=== PATIENT | female | born 1980 | race Caucasian/White ===

== ENCOUNTER 2018-10-11 13:15 | Outpatient (REF) | payer BC, SELFPAY ==
--- NOTE | 2018-10-11 12:15 | PAPFT_PTH ---
PAT[facility]: [id number] AGE/SX: 38/F ROOM: RE10/11/[address]: Eve Barboza : 1980 BED: DIS: 10/11/2018 SPEC #: [id number] RECD: 10/14/18 13:08 STATUS: TIFF REEnrique #: [id number] DANIELA: 10/11/18 12:[address]: Eve Barboza DEPT: [facility] Cytology RECD BY: Annemarie Barnes Tissues: 1 - CX/ENDOCX FOR PAP SMEARS Procedures: PAP THIN PREP/UVM Screening HPV DNA PROBE Comments: [id number]
[2018-10-11 21:22] LABS: Anion Gap 12.4 mmol/L (3-11); BUN 13 mg/dL (7-18); CO2 26.6 mmol/L (21.0-32.0); CREATININE 0.86 mg/dL (0.55-1.02); Calcium 9.7 mg/dL (8.5-10.1); Chloride 103 mmol/L (98-107); Cholesterol 223 mg/dL (50-200); Glucose 73 mg/dL (70-100); HDL Cholesterol 61 mg/dL (40-60); LDL CHOLESTEROL 141 mg/dL (<100); Potassium 3.7 mmol/L (3.5-5.1); Sodium 142 mmol/L (136-145); TSH (W/Ref FT4) 0.89 uIU/mL (0.358-3.74); Triglyceride 88 mg/dL (30-150)
[2018-10-11 21:37] LABS: Magnesium 2.2 mg/dL (1.8-2.4)
== END 2018-10-11 13:35 ==
LOC: NCHCN 13:15
PROVIDERS: PCP Nurse Practitioner Family; Visit Provider Nurse Practitioner Family
DX: Z00.00 Encounter for general adult medical examination without abnormal findings (principal); R07.9 Chest pain, unspecified; F45.8 Other somatoform disorders; N39.3 Stress incontinence (female) (male); R10.13 Epigastric pain; F34.1 Dysthymic disorder; E66.9 Obesity, unspecified; Z12.4 Encounter for screening for malignant neoplasm of cervix; Z11.51 Encounter for screening for human papillomavirus (HPV); Z01.419 Encounter for gynecological examination (general) (routine) without abnormal findings
CPT/HCPCS: 80048; 80061; 83721; 88142; 83735; 84443; 87624

== ENCOUNTER 2020-04-02 16:09 | Outpatient (REF) | payer MEDICAID, SELFPAY ==
[2020-04-05 15:16] LABS: SARS-CoV-2 RNA Undetected (Undetected); SARS-CoV-2 Specimen Source Nasopharynx
== END 2020-04-02 16:29 ==
LOC: NCHCN 16:09
PROVIDERS: PCP Nurse Practitioner Family; Visit Provider Family Medicine
DX: Z11.59 Encounter for screening for other viral diseases (principal)
CPT/HCPCS: U0003

== ENCOUNTER 2020-09-22 12:46 | Emergency (ER) | payer OTHER, SELFPAY ==
[2020-09-22] VITALS (15 sets, daily range): BP systolic 125–142; BP diastolic 76–92; PULSE 79–93; RESP 12–20; TEMP 36.8–37.2; O2SAT 97–100
--- NOTE | 2020-09-22 12:45 | RT.EKG_ITS ---
APPROVED REPORT Exam: Resting ECG Patient Location: E HR:91 bpm ECG Measurements Heart Rate 91 AXIS IL 145 P 66 QRSd 96 QRS 63 QT 367 T 26 QTc 453 Conclusion Sinus rhythm...normal P axis, V-rate 60- 99. S1Q3T3. No STEMI. I have reviewed and interpreted ECG and agree with software generated interpretation.
--- NOTE | 2020-09-22 12:57 | W.ED.GENAD ---
Discharge Plan Disposition Patient Disposition: HOME Condition: Stable Discharge Details Clinical Impression: Atypical chest pain, Chest wall pain Primary Care Provider: Eve Barboza ED Provider: Halle Frank Home Meds and New Rx's Prescriptions: New methocarbamol 500 mg tablet 500 mg PO Q6H PRN (Reason: muscle spasm) Qty: 14 RF: 0 naproxen [Naprosyn] 500 mg tablet 500 mg PO BID PRN (Reason: pain) Qty: 14 RF: 0 lidocaine [Lidoderm] 5 % adhesive patch,medicated 1 patch TP DAILY PRN (Reason: pain) Qty: 15 RF: 0 Continued medroxyprogesterone [Depo-Provera] 150 mg/mL Suspension IM RF: 0 Discharge Instructions Instructions: Chest Wall Pain (ED) Additional Instructions: Alternate ice and heat to the affected area(s) several times daily for 20 minutes at a time. Alternate tylenol and motrin as needed and directed for pain. Take the methocarbamol for pain not relieved with Tylenol or Motrin. Use Lidoderm patch as needed and directed for pain. Call your primary care doctor's office tomorrow to schedule a follow-up appointment for reevaluation and for referral for outpatient stress test if your symptoms do not improve or worsen. Return immediately to the emergency department if you develop any worsening or new concerning symptoms. Discharge Data Discharge Date/Time-TO BE ENTERED AT DEPARTURE: 09/22/20 16:57 Discharge Physician: Halle Frank Medical Decision Making 40-year-old female with a history of peptic ulcer disease and tobacco smoker presents from the urgent care for substernal chest pain with radiation to her back and right arm with intermittent shortness of breath for CT chest to rule out PE. Denies any pleuritic chest pain. EKG notes a rate of 91, sinus. S1 Q3 T3. No acute ST elevation or depression. Her substernal chest is tender. Her lungs are clear. Differential diagnosis includes PE, musculoskeletal, anxiety. History and presentation not consistent with dissection. Screening labs and CT chest obtained and unremarkable. A repeat troponin obtained and negative. Repeat EKG unchanged. Patient reassessed and she is requesting to go home. She was still complaining of pain but states that she now has right chest pain which radiates to her back. Her right chest and right back is tender but she appears nontoxic and has normal oxygen saturation. Suspect most likely musculoskeletal. Patient was given a Valium and a Lidoderm patch placed. We will send home with methocarbamol and naproxen. Advised to follow-up with primary care doctor for evaluation and for referral for stress test if symptoms do not improve or worsen. Insert return precautions Medical Records Medical records reviewed: Yes I reviewed the patient's medical records. Imaging Data Radiologic Study: Radiologist's impression: CT CHEST PE CTA CLINICAL HISTORY: chest pain, sob, r/o PE, pneumonia. TECHNIQUE: Imaging Protocol: Axial CT angiography was performed with multi-slice acquisition and multi-planar and/or 3D reconstructions. CONTRAST MATERIAL: Intravenous: Omnipaque 350 Contrast volume:100 mL COMPARISON: No exams were available for comparison FINDINGS: Tracheobronchial tree: Patent where visualized. Pulmonary parenchyma: No consolidation or dominant measurable mass. No architectural distortion. Poor inspiration. Pulmonary Arteries: No evidence of filling defect to suggest pulmonary emboli. Mediastinum and Radha: No dominant adenopathy or fluid collection. Visualized thyroid gland: Unremarkable. Pleura: No effusion or pneumothorax. Heart: The heart is not dilated. No coronary artery calcifications are seen. No pericardial effusion. Aorta: Thoracic aorta non-dilated. No evidence of dissection. Upper abdomen: Unremarkable. Soft tissues: Unremarkable. Bones: Degenerative changes. IMPRESSION: 1. No evidence of pulmonary embolism, thoracic aortic dissection or aneurysm. 2. Findings were discussed with the emergency department on the date of the examination. Lab Data Lab results reviewed: Yes I reviewed the patient's lab results. Labs: Laboratory Tests Range/Units 09/22/20 09/22/20 09/22/20 12:56 12:56 12:56 WBC (4.4-10.8) 10^3/uL 12.08 H RBC (3.93-5.22) 10^6/uL 4.93 Hgb (11.2-15.7) g/dL 15.7 Hct (36.0-46.0) % 46.7 H MCV (80-95) fL 94.7 MCH (27.0-33.0) pg 31.8 MCHC (32.0-36.0) % 33.6 RDW (11.7-14.6) % 12.5 Plt Count (130-400) 10^3/uL 275 MPV (8.0-11.0) fL 10.6 Immature Gran % 0.4 Neutrophils % 63.8 Lymphocytes % 28.2 Monocytes % 6.3 Eosinophils % 0.9 Basophils % 0.4 Nucleated RBC % % 0 Absolute Neutrophils (1.2-6.7) 10^3/uL 7.71 H Absolute Lymphocytes (1.2-3.4) 10^3/uL 3.41 H Absolute Monocytes (0.1-0.8) 10^3/uL 0.76 Absolute Eosinophils (0.0-0.7) 10^3/uL 0.11 Absolute Basophils (0.0-0.2) 10^3/uL 0.05 PT (9.3-11.0) sec 10.0 INR (0.9-1.1) 1.0 APTT (21.0-27.5) sec 26.1 Sodium (136-145) mmol/L 139 Potassium (3.5-5.1) mmol/L 3.3 L Chloride (98-107) mmol/L 104 Carbon Dioxide (21.0-32.0) mmol/L 28.2 Anion Gap (3-11) mmol/L 6.8 BUN (7-18) mg/dL 12 Creatinine (0.55-1.02) mg/dL 0.90 Estimated GFR/1.73 m2 (mL/min/1.73m2) >= 60.00 Glucose (74-106) mg/dL 86 Calcium (8.5-10.1) mg/dL 8.4 L Magnesium (1.8-2.4) mg/dL 2.1 Total Bilirubin (0.2-1.0) mg/dL 0.3 AST (15-37) U/L 13 L ALT (14-59) U/L 32 Alkaline Phosphatase (46-116) U/L 67 Troponin I (<0.06) ng/mL < 0.05 Total Protein (6.4-8.2) g/dL 7.2 Albumin (3.4-5.0) g/dL 4.0 Range/Units 09/22/20 16:10 WBC (4.4-10.8) 10^3/uL RBC (3.93-5.22) 10^6/uL Hgb (11.2-15.7) g/dL Hct (36.0-46.0) % MCV (80-95) fL MCH (27.0-33.0) pg MCHC (32.0-36.0) % RDW (11.7-14.6) % Plt Count (130-400) 10^3/uL MPV (8.0-11.0) fL Immature Gran % Neutrophils % Lymphocytes % Monocytes % Eosinophils % Basophils % Nucleated RBC % % Absolute Neutrophils (1.2-6.7) 10^3/uL Absolute Lymphocytes (1.2-3.4) 10^3/uL Absolute Monocytes (0.1-0.8) 10^3/uL Absolute Eosinophils (0.0-0.7) 10^3/uL Absolute Basophils (0.0-0.2) 10^3/uL PT (9.3-11.0) sec INR (0.9-1.1) APTT (21.0-27.5) sec Sodium (136-145) mmol/L Potassium (3.5-5.1) mmol/L Chloride (98-107) mmol/L Carbon Dioxide (21.0-32.0) mmol/L Anion Gap (3-11) mmol/L BUN (7-18) mg/dL Creatinine (0.55-1.02) mg/dL Estimated GFR/1.73 m2 (mL/min/1.73m2) Glucose (74-106) mg/dL Calcium (8.5-10.1) mg/dL Magnesium (1.8-2.4) mg/dL Total Bilirubin (0.2-1.0) mg/dL AST (15-37) U/L ALT (14-59) U/L Alkaline Phosphatase (46-116) U/L Troponin I (<0.06) ng/mL < 0.05 Total Protein (6.4-8.2) g/dL Albumin (3.4-5.0) g/dL ECG Data Attestation: I personally reviewed and interpreted this ECG (s) as follows: Interpretation: Rate of 91, sinus, S1Q3T3. No acute ST elevation or depression. FL 125. QRS 96. QTc 453. HPI General Mode of arrival: ambulatory. Date/Time Provider Initiated Documentation: 09/22/20 12:54. Limitations to Documentation: no limitations. Information obtained by: patient. HPI Narrative: Patient is a 40-year-old female with a history of peptic ulcer disease presents for sharp chest pain with radiation to her back and right arm with intermittent shortness of breath since yesterday. Patient states the pain started while walking around at work yesterday. Patient works as a home health nurse. She denies any history of excessive exertion or injury. Patient states the pain was at its worse on driving in her car this morning at 8/10. She states the pain is currently 4/10. She also admits to nausea but denies any vomiting, fever, cough, dizziness, recent travel, recent surgery, leg pain or swelling. Related Data Home Medications Medication Instructions Recorded Confirmed lidocaine [Lidoderm] 1 patch TP DAILY PRN #15 each 09/22/20 medroxyprogesterone [Depo-Provera] mg IM 09/22/20 methocarbamol 500 mg PO Q6H PRN #14 tab 09/22/20 naproxen [Naprosyn] 500 mg PO BID PRN #14 tab 09/22/20 Previous Rx's Medication Instructions Recorded lidocaine [Lidoderm] 1 patch TP DAILY PRN #15 each 09/22/20 methocarbamol 500 mg PO Q6H PRN #14 tab 09/22/20 naproxen [Naprosyn] 500 mg PO BID PRN #14 tab 09/22/20 Allergies Allergy/AdvReac Type Severity Reaction Status Date / Time No Known Allergies Allergy Unverified 09/22/20 12:53 General Stated Complaint: Chest Pain CELIA: 2 Review of Systems All systems reviewed & are unremarkable except as noted in HPI and below Constitutional Constitutional: Reports as per HPI, Denies chills and Denies fever(s) Eyes Eyes: Denies blurry vision ENT Ears, Nose, Mouth, and Throat: Denies dizziness, Denies sore throat and Denies throat swelling Cardiovascular Cardiovascular: Reports chest pain and Denies dyspnea Respiratory Respiratory: Denies cough and Denies dyspnea Gastrointestinal Gastrointestinal: Denies abdominal pain, Denies diarrhea and Denies vomiting Genitourinary Genitourinary: Denies hematuria and Denies dysuria Musculoskeletal Musculoskeletal: Denies back pain and Denies numbness Integumentary/Breasts Skin/Breast: Denies lesions and Denies rash Neurologic Neurologic: Denies dizziness, Denies localized weakness and Denies numbness Allergic/Immunologic Allergic/Immunologic: Denies throat swelling [facility] Medical History (Updated 09/22/20 @ 16:43 by Halle Frank DO) Peptic ulcer disease Surgical History (Updated 09/22/20 @ 13:17 by Halle Frank DO) History of bunionectomy History of tonsillectomy Social History Smoking/Tobacco Use Status: Current every day Tobacco Type: cigarettes Smoking risk assessment performed?: Yes Alcohol Intake: current Drug use: Never Substance use type: does not use Do you feel safe at home: Yes Do you feel safe in your relationship?: Yes Exam Const General: cooperative, healthy appearing, no acute distress and anxious Orientation: alert, awake and oriented x3 HENMT Head: normal to inspection Face and sinus: normal facial exam Eyes General: appearance normal, both eyes and all related structures Pupils: PERRL EOM: EOM intact bilaterally Neck Neck: normal visual inspection and No submandibular swelling Lymphatic: no lymphadenopathy noted Chest Chest: normal inspection of the chest Chest/axillae images: 1. Tenderness to palpation of substernal chest. No crepitus, ecchymoses, erythema, edema. Resp Effort & Inspection: normal respiratory effort and able to speak in complete sentences Auscultation: clear to auscultation bilaterally Cardio Rate: regular rate Rhythm: regular rhythm GI Inspection: normal to inspection Palpation: soft, not firm, not rigid and nontender Auscultation: normal bowel sounds Back/Spine/Pelvis Thoracic/Lumbar Spine: thoracic and lumbar spine normal to inspection Skin General skin exam: no rashes or lesions noted Neuro General: patient alert, patient awake and patient oriented x3 Cognition: normal cognition Speech: speech normal Motor: muscle tone normal throughout Sensory Exam: no sensory deficits noted Extrem General: normal to inspection, full ROM, capillary refill normal, no calf tenderness bilaterally and no edema Psych Appearance: grossly normal Mental Status: mental status grossly normal Speech and Movement: speech and movement normal Affect: normal affect Course Vital Signs Vital signs: Vital Signs Temperature 99.0 F 09/22/20 12:51 Pulse 90 09/22/20 12:51 Respiratory Rate 20 09/22/20 12:51 Blood Pressure 132/92 H 09/22/20 12:51 Pulse Oximetry 99 09/22/20 12:51 Temperature 99.0 F 09/22/20 12:51 Temperature Source Skin 09/22/20 12:51 Pulse 90 09/22/20 12:51 Respiratory Rate 20 09/22/20 12:51 Respiratory Effort Short of Breath 09/22/20 12:55 Blood Pressure 132/92 H 09/22/20 12:51 Blood Pressure Position Supine 09/22/20 12:51 Pulse Oximetry 99 09/22/20 12:51 Oxygen Delivery Method Room Air 09/22/20 12:51 Oxygen Flow Rate 0 09/22/20 12:51 Pain Level 8 09/22/20 12:51
[2020-09-22 13:10] LABS: Abs Immature Grans 0.05 10^3/uL (0.0-0.06); Absolute Basophil Count 0.05 10^3/uL (0.0-0.2); Absolute Eosinophil Count 0.11 10^3/uL (0.0-0.7); Absolute Lymphocyte Count 3.41 10^3/uL (1.2-3.4); Absolute Monocyte Count 0.76 10^3/uL (0.1-0.8); Basophils % 0.4; Eosinophils % 0.9; HCT 46.7 % (36.0-46.0); HGB 15.7 g/dL (11.2-15.7); Immature Grans % 0.4; Lymphocytes % 28.2; MCH 31.8 pg (27.0-33.0); MCHC 33.6 % (32.0-36.0); MCV 94.7 fL (80-95); MPV 10.6 fL (8.0-11.0); Monocytes % 6.3; Neutrophils % 63.8; Nucleated RBC 0 %; Platelet Count 275 10^3/uL (130-400); RBC 4.93 10^6/uL (3.93-5.22); RDW 12.5 % (11.7-14.6); RDW-SD 44.4 fL; WBC 12.08 10^3/uL (4.4-10.8)
[2020-09-22] MEDS: Ondansetron 4 MG/2 ML VIAL IVP (13:11)
--- NOTE | 2020-09-22 13:15 | DI.CT_ITS ---
EXAM: CT CHEST PE CTA CLINICAL HISTORY: chest pain, sob, r/o PE, pneumonia. TECHNIQUE: Imaging Protocol: Axial CT angiography was performed with multi-slice acquisition and mu lti-planar and/or 3D reconstructions. CONTRAST MATERIAL: Intravenous: Omnipaque 350 Contrast volume:100 mL COMPARISON: No exams were available for comparison FINDINGS: Tracheobronchial tree: Patent where visualized. Pulmonary parenchyma: No consolidation or dominant measurable mass. No architectural distortion. Poor inspiration. Pulmonary Arteries: No evidence of filling defect to suggest pulmonary emboli. Mediastinum and Radha: No dominant adenopathy or fluid collection. Visualized thyroid gland: Unremarkable. Pleura: No effusion or pneumothorax. Heart: The heart is not dilated. No coronary artery calcifications are seen. No pericardial effusion. Aorta: Thoracic aorta non-dilated. No evidence of dissection. Upper abdomen: Unremarkable. Soft tissues: Unremarkable. Bones: Degenerative changes. IMPRESSION: 1. No evidence of pulmonary embolism, thoracic aortic dissection or aneurysm. 2. Findings were discussed with the emergency department on the date of the examination. RADIATION DOSE DELIVERED: 505.82mGy.cm Total DLP DATA REPOSITORY: All CT scans at this facility are submitted to the National Radiology Data Registry (NRDR) Dose Index Registry (DIR) with the [employer] ([employer]). RADIATION OPTIMIZATION: All CT scans at this facility use at least one of these dose optimization te chniques: automated exposure control; mA and/or kV adjustment per patient size (includes targeted exa ms where dose is matched to clinical indication); or iterative reconstruction.
[2020-09-22 13:16] LABS: Absolute Neutrophil Count 7.71 10^3/uL (1.2-6.7)
[2020-09-22 13:26] LABS: ALT 32 U/L (14-59); AST 13 U/L (15-37); Alkaline Phosphatase 67 U/L (46-116); Anion Gap 6.8 mmol/L (3-11); BUN 12 mg/dL (7-18); Bilirubin, Total 0.3 mg/dL (0.2-1.0); CO2 28.2 mmol/L (21.0-32.0); Calcium 8.4 mg/dL (8.5-10.1); Chloride 104 mmol/L (98-107); Glucose 86 mg/dL (74-106); Magnesium 2.1 mg/dL (1.8-2.4); Potassium 3.3 mmol/L (3.5-5.1); Sodium 139 mmol/L (136-145); Total Protein 7.2 g/dL (6.4-8.2)
[2020-09-22 13:29] LABS: Troponin I < 0.05 ng/mL (<0.06)
[2020-09-22 13:37] LABS: PTT Activated 26.1 sec (21.0-27.5)
[2020-09-22] MEDS: Normal Saline - Diluent 50 ML VIAL IV (13:48)
[2020-09-22] MEDS: Omnipaque 350 MG/ML 100 ML BTL IJ (13:48)
[2020-09-22] MEDS: Normal Saline Flush 10 ML SYR IVP (13:49)
[2020-09-22] MEDS: Normal Saline 1,000 ML 1000 ML IV (13:54)
[2020-09-22] MEDS: Ketorolac 30 MG/ML VIAL IVP (13:54)
--- NOTE | 2020-09-22 15:15 | RT.EKG_ITS ---
APPROVED REPORT Exam: Resting ECG Patient Location: E HR:81 bpm ECG Measurements Heart Rate 81 AXIS VA 153 P 79 QRSd 95 QRS 76 QT 377 T 30 QTc 437 Conclusion Sinus rhythm...normal P axis, V-rate 60- 99 I have reviewed and interpreted ECG and agree with software generated interpretation.
[2020-09-22 16:36] LABS: Troponin I < 0.05 ng/mL (<0.06)
[2020-09-22] MEDS: diazePAM 5 MG TAB PO (16:52)
[2020-09-22] MEDS: Lidocaine 5% Patch 1 PATCH TP (16:52)
== END 2020-09-22 16:57 | disposition home or self-care (01) ==
PROVIDERS: Emergency Provider Physician Assistant; PCP Nurse Practitioner Family
DX: R07.89 Other chest pain (principal); R07.81 Pleurodynia; R06.02 Shortness of breath
CPT/HCPCS: 36415; 71275; 80053; 81025; 93005; 96361; 96374; 96375; 99285; 83735; 84484; 85025; 85610; 85730; 93010; J1885; J2405; J3490

== ENCOUNTER 2020-10-13 13:49 | Outpatient (CLI) | payer OTHER, MEDICAID, SELFPAY ==
[2020-10-13 15:17] LABS: D-Dimer 624 ng/mlFEU (<500)
== END 2020-10-13 13:50 | disposition home or self-care (01) ==
LOC: LBO 13:58
PROVIDERS: PCP Nurse Practitioner Family; Visit Provider Nurse Practitioner Family
DX: R06.02 Shortness of breath (principal)
CPT/HCPCS: 36415; 85379

== ENCOUNTER 2020-11-05 04:16 | Outpatient (CLI) | payer OTHER, MEDICAID, SELFPAY ==
--- NOTE | 2020-11-05 | DI.CT_ITS ---
EXAM: CT CHEST WO CLINICAL HISTORY: SOB,R06.02,CHEST TIGHTNESS,R07.89,? PARENCHYAL PROCESS,PULMONARY DISEASE,. TECHNIQUE: Imaging protocol: Axial computed tomography images were obtained and coronal and sagittal reformatted images were created and reviewed. COMPARISON: CT CT CHEST PE CTA from 09/22/2020 FINDINGS: Tracheobronchial tree: Patent where visualized. Pulmonary parenchyma: No consolidation or dominant measurable mass. No architectural distortion. Ther e are few pleural based pulmonary nodules likely reflecting scarring or lymph nodes. No follow-up is recommended. There is a calcified granuloma in the right lower lobe. Mediastinum and Radha: No dominant adenopathy or fluid collection. Pleura: No effusion or pneumothorax. Heart: The heart is not dilated. No coronary artery calcifications are seen. No pericardial effusion. Aorta: Thoracic aorta non-dilated. Upper abdomen: Unremarkable. Lymph nodes: Within normal limits. Soft tissues: Unremarkable. Bones:Normal. IMPRESSION: No acute pulmonary process. RADIATION DOSE DELIVERED: 624.71mGy.cm Total DLP 624.71mGy.cm Total DLP DATA REPOSITORY: All CT scans at this facility are submitted to the National Radiology Data Registry (NRDR) Dose Index Registry (DIR) with the [employer] (ACR). RADIATION OPTIMIZATION: All CT scans at this facility use at least one of these dose optimization te chniques: automated exposure control; mA and/or kV adjustment per patient size (includes targeted exa ms where dose is matched to clinical indication); or iterative reconstruction.
== END 2020-11-05 04:36 ==
PROVIDERS: PCP Nurse Practitioner Family
DX: R06.02 Shortness of breath (principal); R07.89 Other chest pain
CPT/HCPCS: 71250

== ENCOUNTER 2020-12-24 02:14 | Outpatient (CLI) | payer OTHER, MEDICAID, SELFPAY ==
--- NOTE | 2020-12-24 | DI.RAD_ITS ---
EXAM: XR CHEST 2V PA LATERAL CLINICAL HISTORY: SOB,R06.02 TECHNIQUE: 2D digital imaging was performed. COMPARISON: No exams were available for comparison FINDINGS: MEDIASTINUM: Normal. HEART: Normal. PULMONARY VASCULATURE: Normal. LUNGS: Clear. PLEURAL SPACE: No pleural effusion or pneumothorax. BONE:Normal. IMPRESSION: No acute pulmonary findings. DATA REPOSITORY: RADIATION DOSE DELIVERED:
[2020-12-24 09:45] LABS: Abs Immature Grans 0.06 10^3/uL (0.0-0.06); Absolute Basophil Count 0.07 10^3/uL (0.0-0.2); Absolute Eosinophil Count 0.17 10^3/uL (0.0-0.7); Absolute Monocyte Count 0.71 10^3/uL (0.1-0.8); Basophils % 0.6; Eosinophils % 1.4; HCT 47.7 % (36.0-46.0); HGB 16.1 g/dL (11.2-15.7); Immature Grans % 0.5; Lymphocytes % 23.9; MCH 32.5 pg (27.0-33.0); MCHC 33.8 % (32.0-36.0); MCV 96.4 fL (80-95); MPV 10.4 fL (8.0-11.0); Monocytes % 5.8; Neutrophils % 67.8; Nucleated RBC 0 %; Platelet Count 297 10^3/uL (130-400); RBC 4.95 10^6/uL (3.93-5.22); RDW 12.4 % (11.7-14.6); RDW-SD 44.5 fL; WBC 12.32 10^3/uL (4.4-10.8)
[2020-12-24 09:54] LABS: Absolute Lymphocyte Count 2.94 10^3/uL (1.2-3.4); Absolute Neutrophil Count 8.35 10^3/uL (1.2-6.7)
[2020-12-24 11:13] LABS: ALT 44 U/L (14-59); AST 21 U/L (15-37); Albumin 4.6 g/dL (3.4-5.0); Alkaline Phosphatase 68 U/L (46-116); Anion Gap 12.5 mmol/L (3-11); BUN 10 mg/dL (7-18); Bilirubin, Total 0.6 mg/dL (0.2-1.0); CO2 24.5 mmol/L (21.0-32.0); CREATININE 0.9 mg/dL (0.55-1.02); Calcium 9.9 mg/dL (8.5-10.1); Chloride 103 mmol/L (98-107); Glucose 85 mg/dL (74-106); NT-proBNP 13 pg/mL (<300); Potassium 4.1 mmol/L (3.5-5.1); Sodium 140 mmol/L (136-145); Total Protein 7.5 g/dL (6.4-8.2)
[2020-12-24 13:15] LABS: D-Dimer 188 ng/mlFEU (<500)
== END 2020-12-24 02:34 ==
PROVIDERS: PCP Nurse Practitioner Family; Visit Provider Nurse Practitioner Family
DX: R06.02 Shortness of breath (principal); R60.0 Localized edema; D72.829 Elevated white blood cell count, unspecified; D75.1 Secondary polycythemia; R07.9 Chest pain, unspecified
CPT/HCPCS: 36415; 80053; 71046; 83880; 85025; 85379

== ENCOUNTER 2020-12-28 03:33 | Outpatient (CLI) | payer OTHER, MEDICAID, SELFPAY ==
[2020-12-31 09:30] LABS: JAK2 Result see interpretation
== END 2020-12-28 03:34 | disposition home or self-care (01) ==
LOC: LBO 03:33
PROVIDERS: PCP Nurse Practitioner Family; Visit Provider Nurse Practitioner Family
DX: D75.1 Secondary polycythemia (principal)
CPT/HCPCS: 36415; 81270

== ENCOUNTER 2021-01-14 17:17 | Outpatient (REF) | payer OTHER, MEDICAID, SELFPAY ==
[2021-01-14 20:35] LABS: Abs Immature Grans 0.03 10^3/uL (0.0-0.06); Absolute Basophil Count 0.07 10^3/uL (0.0-0.2); Absolute Eosinophil Count 0.11 10^3/uL (0.0-0.7); Absolute Lymphocyte Count 2.64 10^3/uL (1.2-3.4); Absolute Monocyte Count 0.67 10^3/uL (0.1-0.8); Absolute Neutrophil Count 6.21 10^3/uL (1.2-6.7); Basophils % 0.7; Eosinophils % 1.1; HCT 46.3 % (36.0-46.0); HGB 15.1 g/dL (11.2-15.7); Immature Grans % 0.3; Lymphocytes % 27.1; MCHC 32.6 % (32.0-36.0); MCV 98.1 fL (80-95); MPV 11.6 fL (8.0-11.0); Monocytes % 6.9; Neutrophils % 63.9; Nucleated RBC 0 %; Platelet Count 286 10^3/uL (130-400); RBC 4.72 10^6/uL (3.93-5.22); RDW 12.6 % (11.7-14.6); RDW-SD 46.1 fL; WBC 9.73 10^3/uL (4.4-10.8)
[2021-01-14 20:51] LABS: Iron 82 ug/dL (50-170); Total Iron Binding Capacity 243 ug/dL (250-450); Transferrin Sat 34 % (15-50)
[2021-01-14 21:01] LABS: ALT 35 U/L (14-59); AST 17 U/L (15-37); Albumin 4.2 g/dL (3.4-5.0); Alkaline Phosphatase 68 U/L (46-116); Anion Gap 10.6 mmol/L (3-11); BUN 14 mg/dL (7-18); Bilirubin, Total 0.4 mg/dL (0.2-1.0); CO2 26.4 mmol/L (21.0-32.0); Calcium 9.3 mg/dL (8.5-10.1); Calculated LDL 133 mg/dL (<100); Chloride 106 mmol/L (98-107); Cholesterol 222 mg/dL (<200); Ferritin 454 ng/mL (8-252); Glucose 80 mg/dL (74-106); HDL Cholesterol 68 mg/dL (40-60); Magnesium 2.3 mg/dL (1.8-2.4); Potassium 4.1 mmol/L (3.5-5.1); Sodium 143 mmol/L (136-145); TSH (W/Ref FT4) 1.05 uIU/mL (0.36-3.74); Total Protein 6.9 g/dL (6.4-8.2); Triglyceride 106 mg/dL (<150)
[2021-01-14 21:08] LABS: Hemoglobin A1C 5.1 % (<5.7)
[2021-01-17 05:44] LABS: Vitamin D 25 Total 8.7 ng/mL (30-100)
== END 2021-01-14 17:18 | disposition home or self-care (01) ==
LOC: NCHCN 17:17
PROVIDERS: PCP Nurse Practitioner Family; Visit Provider Nurse Practitioner Family
DX: R53.83 Other fatigue (principal); R07.9 Chest pain, unspecified; D75.1 Secondary polycythemia; R60.0 Localized edema; G47.33 Obstructive sleep apnea (adult) (pediatric); N64.4 Mastodynia; D72.829 Elevated white blood cell count, unspecified
CPT/HCPCS: 80053; 80061; 82306; 82728; 83036; 83540; 83550; 83735; 84443; 85025

== ENCOUNTER 2021-02-25 04:17 | Outpatient (CLI) | payer OTHER, MEDICAID, SELFPAY ==
--- NOTE | 2021-02-25 | DI.MAMMO_ITS ---
Exam(s) MAMMO DIAGNOSTIC BI EXAM: MAMMO DIAGNOSTIC BI CLINICAL HISTORY: DIAGNOSTIC, BREAST TENDERNESS BILAT, FAMILY H/O BREAST CA TECHNIQUE: Mammograms were interpreted according to the usual protocol including computer analysis w [employer] CAD system, tomosynthesis and C-view imaging. COMPARISON: 2012 FINDINGS: The breasts are composed of heterogeneously dense fibroglandular densities, Breast Density category C . Patient states previous chest pain but no breast complaints. No suspicious masses or suspicious microcalcifications are seen. No skin thickening or abnormal axillary lymph nodes are seen. There has been no significant change from the prior exam. IMPRESSION: BI-RADS Category 1, Negative mammogram. Yearly screening mammography is recommended. . Breast Density Category C, heterogeneously Dense. The mammogram demonstrates the patient's breast tissue is dense. Dense breast tissue is very common a nd is not abnormal but dense breast tissue can make it harder to find cancer on a mammogram. Also, de nse breast tissue may increase breast cancer risk. This information about the result of the mammogram report was provided to the patient to raise their awareness. Use this report when you speak with the patient about their risks for breast cancer, which includes their family history. At that time, you may recommend additional screening tests (Ultrasound or MRI) as they might be useful based on their r isk. A negative radiographic report should not delay biopsy if a dominant or clinically suspicious mass is present. Up to ten percent of cancers are not identified on mammography. A negative report may reinforce clinical impression. Adenosis and dense breasts may obscure an underlying neoplasm. False positive reports average 6 to 10%.
== END 2021-02-25 04:37 ==
PROVIDERS: PCP Nurse Practitioner Family; Visit Provider Nurse Practitioner Family
DX: R92.2 Inconclusive mammogram (principal); Z80.3 Family history of malignant neoplasm of breast
CPT/HCPCS: 77062; 77066; G0279

== ENCOUNTER 2021-10-05 15:15 | Outpatient (REF) | payer OTHER, MEDICAID, SELFPAY ==
[2021-10-05 21:02] LABS: HCT 48.2 % (36.0-46.0); HGB 15.6 g/dL (11.2-15.7); MCH 31.3 pg (27.0-33.0); MCHC 32.4 % (32.0-36.0); MCV 96.6 fL (80-95); MPV 11.6 fL (8.0-11.0); Platelet Count 277 10^3/uL (130-400); RBC 4.99 10^6/uL (3.93-5.22); RDW 12.3 % (11.7-14.6); RDW-SD 44.1 fL; WBC 11.05 10^3/uL (4.4-10.8)
[2021-10-05 21:21] LABS: Iron 90 ug/dL (50-170); Total Iron Binding Capacity 240 ug/dL (250-450); Transferrin Sat 38 % (15-50)
[2021-10-05 21:30] LABS: Anion Gap 14.1 mmol/L (3-11); BUN 12 mg/dL (7-18); CO2 22.9 mmol/L (21.0-32.0); CREATININE 0.8 mg/dL (0.55-1.02); Calcium 9.2 mg/dL (8.5-10.1); Chloride 106 mmol/L (98-107); Ferritin 347 ng/mL (8-252); Glucose 61 mg/dL (74-106); Potassium 3.8 mmol/L (3.5-5.1); Sodium 143 mmol/L (136-145); TSH (W/Ref FT4) 0.83 uIU/mL (0.36-3.74)
== END 2021-10-05 15:16 | disposition home or self-care (01) ==
LOC: NCHCN 15:15
PROVIDERS: PCP Nurse Practitioner Family; Visit Provider Nurse Practitioner Family
DX: Z00.00 Encounter for general adult medical examination without abnormal findings (principal); R79.89 Other specified abnormal findings of blood chemistry; R53.83 Other fatigue; E55.9 Vitamin D deficiency, unspecified
CPT/HCPCS: 80048; 82306; 85027; 82728; 83540; 83550; 84443

== ENCOUNTER 2021-11-09 14:50 | Outpatient (CLI) | payer OTHER, MEDICAID, SELFPAY ==
[2021-11-09 15:13] LABS: Anion Gap 12.1 mmol/L (3-11); BUN 11 mg/dL (7-18); CO2 24.9 mmol/L (21.0-32.0); CREATININE 0.8 mg/dL (0.55-1.02); Calcium 9.3 mg/dL (8.5-10.1); Chloride 105 mmol/L (98-107); Glucose 79 mg/dL (74-106); Potassium 3.6 mmol/L (3.5-5.1); Sodium 142 mmol/L (136-145)
[2021-11-09 15:48] LABS: D-Dimer 436 ng/mlFEU (<500)
[2021-11-10 04:31] LABS: Vitamin D 25 Total 26.1 ng/mL (30-100)
[2021-11-14 13:06] LABS: Factor V Leiden(R506Q) Mut Negative (Negative)
== END 2021-11-09 14:51 | disposition home or self-care (01) ==
LOC: LBO 14:54
PROVIDERS: PCP Nurse Practitioner Family; Visit Provider Nurse Practitioner Family
DX: I26.99 Other pulmonary embolism without acute cor pulmonale (principal); E55.9 Vitamin D deficiency, unspecified
CPT/HCPCS: 36415; 80048; 81241; 82306; 85379

== ENCOUNTER → 2022-03-29 01:56 | Outpatient (CLI) | payer OTHER, MEDICAID, SELFPAY ==
--- NOTE | 2022-03-29 08:32 | DI.MAMMO_ITS ---
Exam(s) MAMMO SCREENING EXAM: MAMMO SCREENING CLINICAL HISTORY: SCREENING, Z12.39; FAMILY H/O BREAST CA, Z80.3 TECHNIQUE: Bilateral full field digital CC and MLO mammographic images were obtained with 3D tomosyn thesis and utilizing computer aided detection (CAD). COMPARISON: Available for comparison. FINDINGS: Masses/Architectural Distortion: None seen. Microcalcifications: No suspicious pleomorphic-type are seen. Skin Thickening/Nipple Retraction: None. IMPRESSION: 1. No significant interval change with no specific features of malignancy noted. 2. Unless there is more urgent need, screening mammography is recommended, as per [employer] guidelines. BI-RADS Category 1 - Negative Breast Density - Category C - Heterogeneously dense Breast density category C or D implies that the patient has dense breast tissue. Dense breast tissue is very common and is not abnormal but dense breast tissue can make it harder to find cancer on a ma mmogram. Also, dense breast tissue may increase their breast cancer risk. This information about the result of the mammogram report was provided to the patient to raise their awareness. Use this report when you speak with the patient about their risks for breast cancer, which includes their family hist ory. At that time, you may recommend for more screening tests (Ultrasound or MRI) as they might be us eful based on their risk. A negative radiographic report should not delay biopsy if a dominant or clinically suspicious mass is present. Up to ten percent of cancers are not identified on mammography. A negative report may reinforce clinical impression. Adenosis and dense breasts may obscure an underlying neoplasm. False positive reports average 6 to 10%. Patient will receive a letter notifying them of these results.
== END ==
PROVIDERS: PCP Nurse Practitioner Family; Visit Provider Nurse Practitioner Family
DX: Z12.31 Encounter for screening mammogram for malignant neoplasm of breast (principal); Z80.3 Family history of malignant neoplasm of breast
CPT/HCPCS: 77063; 77067

== ENCOUNTER 2022-05-17 21:58 | Outpatient (REF) | payer OTHER, MEDICAID, SELFPAY ==
[2022-05-17 19:55] LABS: LDH 147 U/L (81-234)
[2022-05-17 20:06] LABS: HCT 44.6 % (36.0-46.0); MCH 32.1 pg (27.0-33.0); MCHC 33.6 % (32.0-36.0); MCV 96 fL (80-95); MPV 12.2 fL (8.0-11.0); Platelet Count 292 10^3/uL (130-400); RBC 4.67 10^6/uL (3.93-5.22); RDW 12.9 % (11.7-14.6); RDW-SD 45.3 fL; WBC 11.57 10^3/uL (4.4-10.8)
[2022-05-19 15:44] LABS: ANA Interpretation Negative (Negative)
== END 2022-05-17 21:59 | disposition home or self-care (01) ==
LOC: NCHCN 21:58
PROVIDERS: PCP Nurse Practitioner Family; Visit Provider Nurse Practitioner Family
DX: R06.02 Shortness of breath (principal); I26.99 Other pulmonary embolism without acute cor pulmonale; M25.59 Pain in other specified joint; R53.83 Other fatigue
CPT/HCPCS: 85027; 83615; 86038

== ENCOUNTER 2022-10-05 15:58 | Outpatient (REF) | payer MEDICAID, SELFPAY ==
[2022-10-05 14:37] LABS: HCT 47.6 % (36.0-46.0); HGB 15.7 g/dL (11.2-15.7); MCV 97 fL (80-95); MPV 11.7 fL (8.0-11.0); Platelet Count 287 10^3/uL (130-400); RBC 4.91 10^6/uL (3.93-5.22); RDW 12.9 % (11.7-14.6); RDW-SD 46.5 fL; WBC 12.96 10^3/uL (4.4-10.8)
[2022-10-05 14:42] LABS: ALT 30 U/L (14-59); AST 17 U/L (15-37); Albumin 4.6 g/dL (3.4-5.0); Alkaline Phosphatase 71 U/L (46-116); Anion Gap 5.9 mmol/L (3-11); BUN 9 mg/dL (7-18); Bilirubin, Total 0.3 mg/dL (0.2-1.0); CO2 30.1 mmol/L (21.0-32.0); CREATININE 0.8 mg/dL (0.55-1.02); Calcium 9.8 mg/dL (8.5-10.1); Chloride 103 mmol/L (98-107); Estimated GFR 94.87 (mL/min/1.73m2); Glucose 70 mg/dL (74-106); Potassium 3.8 mmol/L (3.5-5.1); Sodium 139 mmol/L (136-145); Total Protein 7.4 g/dL (6.4-8.2)
[2022-10-05 14:44] LABS: Bilirubin Negative (Negative); Blood Negative (Negative); Clarity Clear (Clear); Glucose Negative (Negative); Ketones Negative (Negative); Leukocyte Esterase Negative (Negative); Nitrite Negative (Negative); Specific Gravity 1.015 (1.005-1.025); Urobilinogen 0.2 EU/dL (Up TO 0.2)
[2022-10-05 15:04] LABS: Vitamin D 25 Total 15.9 ng/mL (30-100)
== END 2022-10-05 15:59 | disposition home or self-care (01) ==
LOC: NCHCN 15:58
PROVIDERS: PCP Nurse Practitioner Family; Visit Provider Nurse Practitioner Family
DX: R32 Unspecified urinary incontinence (principal)
CPT/HCPCS: 80053; 82306; 85027; 81003

== ENCOUNTER 2023-11-23 15:13 | Outpatient (REF) | payer OTHER, MEDICAID, SELFPAY ==
[2023-11-23 21:36] LABS: HCT 47.3 % (36.0-46.0); HGB 15.4 g/dL (11.2-15.7); MCH 32.6 pg (27.0-33.0); MCHC 32.6 % (32.0-36.0); MCV 100 fL (80-95); MPV 11.5 fL (8.0-11.0); Platelet Count 289 10^3/uL (130-400); RBC 4.72 10^6/uL (3.93-5.22); RDW 12.6 % (11.7-14.6)
[2023-11-23 22:03] LABS: ALT 37 U/L (14-59); AST 17 U/L (15-37); Alkaline Phosphatase 73 U/L (46-116); Anion Gap 11.1 mmol/L (3-11); BUN 17 mg/dL (7-18); Bilirubin, Total 0.2 mg/dL (0.2-1.0); CO2 26.9 mmol/L (21.0-32.0); CREATININE 0.8 mg/dL (0.55-1.02); Chloride 108 mmol/L (98-107); Estimated GFR 94.28 (mL/min/1.73m2); Ferritin 406 ng/mL (8-252); Glucose 90 mg/dL (74-106); Potassium 3.5 mmol/L (3.5-5.1); Sodium 146 mmol/L (136-145); TSH (W/Ref FT4) 0.64 uIU/mL (0.36-3.74); Total Protein 6.8 g/dL (6.4-8.2)
[2023-11-23 22:10] LABS: Vitamin D 25 Total 12.1 ng/mL (30-100)
== END 2023-11-23 15:14 | disposition home or self-care (01) ==
LOC: NCHCN 15:13
PROVIDERS: PCP Nurse Practitioner Family; Visit Provider Nurse Practitioner Family
DX: Z00.00 Encounter for general adult medical examination without abnormal findings (principal); E04.1 Nontoxic single thyroid nodule; R77.8 Other specified abnormalities of plasma proteins; E55.9 Vitamin D deficiency, unspecified; R79.89 Other specified abnormal findings of blood chemistry
CPT/HCPCS: 80053; 82306; 85027; 82728; 84443

== ENCOUNTER 2024-08-15 12:19 | Outpatient (REF) | payer OTHER, MEDICAID, SELFPAY | END 2024-08-15 12:20 | disposition home or self-care (01) | LOC: NCHCN 12:19 | PROVIDERS: PCP Nurse Practitioner Family; Visit Provider Family Medicine | DX: J02.9 Acute pharyngitis, unspecified (principal) | CPT/HCPCS: 87070 ==

== ENCOUNTER 2024-11-28 17:41 | Outpatient (REF) | payer OTHER, SELFPAY ==
[2024-11-28 21:38] LABS: HCT 46.7 % (36.0-46.0); HGB 15.1 g/dL (11.2-15.7); MCH 33.3 pg (27.0-33.0); MCHC 32.3 % (32.0-36.0); MCV 103 fL (80-95); MPV 11.4 fL (8.0-11.0); Platelet Count 277 10^3/uL (130-400); RBC 4.54 10^6/uL (3.93-5.22); WBC 10.03 10^3/uL (4.4-10.8)
[2024-11-28 22:15] LABS: ALT 38 U/L (14-59); AST 22 U/L (15-37); Albumin 4.2 g/dL (3.4-5.0); Alkaline Phosphatase 75 U/L (46-116); Anion Gap 11.6 mmol/L (3-11); BUN 12 mg/dL (7-18); Bilirubin, Total 0.4 mg/dL (0.2-1.0); CO2 27.4 mmol/L (21.0-32.0); CREATININE 0.9 mg/dL (0.55-1.02); Calcium 9.6 mg/dL (8.5-10.1); Calculated LDL 116 mg/dL (<100); Chloride 107 mmol/L (98-107); Cholesterol 233 mg/dL (<200); Estimated GFR 81.35 (mL/min/1.73m2); Ferritin 841 ng/mL (8-252); Glucose 74 mg/dL (74-106); HDL Cholesterol 69 mg/dL (>or=50); Potassium 4.3 mmol/L (3.5-5.1); Sodium 146 mmol/L (136-145); Triglyceride 243 mg/dL (<150); Vitamin D 25 Total 13 ng/mL (30-100)
[2024-12-04 12:34] LABS: Specimen WB Whole Blood
== END 2024-11-28 17:42 | disposition home or self-care (01) ==
LOC: NCHCN 17:41
PROVIDERS: PCP Nurse Practitioner Family; Visit Provider Nurse Practitioner Family
DX: Z00.00 Encounter for general adult medical examination without abnormal findings (principal); E55.9 Vitamin D deficiency, unspecified; R77.8 Other specified abnormalities of plasma proteins
CPT/HCPCS: 80053; 80061; 81256; 82306; 85027; 82728

== ENCOUNTER 2024-12-05 10:12 | Outpatient (CLI) | payer OTHER, SELFPAY ==
[2024-12-05 11:15] LABS: Iron 162 ug/dL (50-170); Total Iron Binding Capacity 257 ug/dL (250-450); Transferrin Sat 63 % (15-50)
[2024-12-05 11:16] LABS: Ferritin 596 ng/mL (8-252); Folate 10.9 ng/mL (8.6-20.0); Vitamin B12 179 pg/mL (193-986)
[2024-12-10 12:45] LABS: Methylmalonic Acid 0.17 nmol/mL (<=0.40)
== END 2024-12-05 10:13 | disposition home or self-care (01) ==
LOC: LBO 10:12
PROVIDERS: PCP Nurse Practitioner Family; Visit Provider Nurse Practitioner Family
DX: R79.89 Other specified abnormal findings of blood chemistry (principal); D75.89 Other specified diseases of blood and blood-forming organs; R77.8 Other specified abnormalities of plasma proteins
CPT/HCPCS: 36415; 80186; 82607; 82728; 82746; 83540; 83550

== ENCOUNTER 2024-12-18 14:05 | Outpatient (CLI) | payer OTHER, SELFPAY ==
[2024-12-18 14:06] LABS: HGB 14.9 g/dL (11.2-15.7)
[2024-12-18 15:24] LABS: Ferritin 523 ng/mL (8-252)
== END 2024-12-18 14:06 | disposition home or self-care (01) ==
LOC: LBO 14:05
PROVIDERS: PCP Nurse Practitioner Family; Visit Provider Nurse Practitioner Family
DX: E83.118 Other hemochromatosis (principal)
CPT/HCPCS: 36415; 82728; 85018

== ENCOUNTER 2024-12-25 01:24 | Outpatient (CLI) | payer OTHER, SELFPAY ==
--- NOTE | 2024-12-25 | DI.MAMMO_ITS ---
Exam(s) MAMMO SCREENING EXAM: MAMMO SCREENING CLINICAL HISTORY: SCREENING MAMMO, Z12.31 TECHNIQUE: Bilateral full field digital CC and MLO mammographic images were obtained with 3D tomosyn thesis and utilizing computer aided detection (CAD). COMPARISON: Available for comparison. FINDINGS: Masses/Architectural Distortion: No suspicious masses or areas of architectural distortion are presen t. Microcalcifications: No suspicious pleomorphic-type are seen. Skin Thickening/Nipple Retraction: None. IMPRESSION: 1. No significant interval change with no specific features of malignancy noted. 2. Unless there is more urgent need, screening mammography is recommended, as per [employer] guidelines. BI-RADS Category 1 - Negative Breast Density - Category C - Heterogeneously dense Breast density category C or D implies that the patient has dense breast tissue. Dense breast tissue is very common and is not abnormal but dense breast tissue can make it harder to find cancer on a ma mmogram. Also, dense breast tissue may increase their breast cancer risk. This information about the result of the mammogram report was provided to the patient to raise their awareness. Use this report when you speak with the patient about their risks for breast cancer, which includes their family hist ory. At that time, you may recommend for more screening tests (Ultrasound or MRI) as they might be us eful based on their risk. A negative radiographic report should not delay biopsy if a dominant or clinically suspicious mass is present. Up to ten percent of cancers are not identified on mammography. A negative report may reinforce clinical impression. Adenosis and dense breasts may obscure an underlying neoplasm. False positive reports average 6 to 10%. Patient will receive a letter notifying them of these results.
== END 2024-12-25 01:44 ==
LOC: DI 01:24
PROVIDERS: PCP Nurse Practitioner Family; Visit Provider Nurse Practitioner Family
DX: Z12.31 Encounter for screening mammogram for malignant neoplasm of breast (principal); R92.333 Mammographic heterogeneous density, bilateral breasts
CPT/HCPCS: 77063; 77067

== ENCOUNTER 2024-12-25 01:59 | Outpatient (RCR) | payer OTHER, SELFPAY | END 2024-12-31 23:59 | disposition home or self-care (01) | LOC: INF 01:59 | PROVIDERS: PCP Nurse Practitioner Family; Visit Provider Nurse Practitioner Family | DX: E83.119 Hemochromatosis, unspecified (principal) | CPT/HCPCS: 99195 ==

== ENCOUNTER 2024-12-31 12:27 | Outpatient (CLI) | payer OTHER, SELFPAY ==
[2024-12-31 12:25] LABS: HGB 14.1 g/dL (11.2-15.7)
[2024-12-31 13:18] LABS: Ferritin 456 ng/mL (8-252)
== END 2024-12-31 12:28 | disposition home or self-care (01) ==
LOC: LBO 12:27
PROVIDERS: PCP Nurse Practitioner Family; Visit Provider Nurse Practitioner Family
DX: E83.119 Hemochromatosis, unspecified (principal)
CPT/HCPCS: 36415; 82728; 85018

== ENCOUNTER 2025-01-07 11:54 | Outpatient (CLI) | payer OTHER, SELFPAY ==
[2025-01-07 14:41] LABS: HGB 12.7 g/dL (11.2-15.7)
[2025-01-07 15:18] LABS: Ferritin 364 ng/mL (8-252)
== END 2025-01-07 11:55 | disposition home or self-care (01) ==
LOC: LBO 11:54
PROVIDERS: PCP Nurse Practitioner Family; Visit Provider Nurse Practitioner Family
DX: E83.118 Other hemochromatosis (principal)
CPT/HCPCS: 36415; 82728; 85018

== ENCOUNTER 2025-01-14 13:34 | Outpatient (CLI) | payer OTHER, SELFPAY ==
[2025-01-14 13:01] LABS: HGB 12.2 g/dL (11.2-15.7)
[2025-01-14 13:35] LABS: Ferritin 312 ng/mL (8-252)
== END 2025-01-14 13:35 | disposition home or self-care (01) ==
LOC: LBO 13:34
PROVIDERS: PCP Nurse Practitioner Family; Visit Provider Nurse Practitioner Family
DX: E83.118 Other hemochromatosis (principal)
CPT/HCPCS: 36415; 82728; 85018

== ENCOUNTER 2025-01-22 08:48 | Outpatient (CLI) | payer OTHER, SELFPAY ==
[2025-01-22 09:25] LABS: HGB 12.7 g/dL (11.2-15.7)
[2025-01-22 09:54] LABS: Ferritin 237 ng/mL (8-252)
== END 2025-01-22 08:49 | disposition home or self-care (01) ==
LOC: LBO 08:49
PROVIDERS: PCP Nurse Practitioner Family; Visit Provider Nurse Practitioner Family
DX: E83.118 Other hemochromatosis (principal)
CPT/HCPCS: 36415; 82728; 85018

== ENCOUNTER 2025-01-29 08:25 | Outpatient (CLI) | payer OTHER, SELFPAY ==
[2025-01-29 11:18] LABS: HGB 12.1 g/dL (11.2-15.7)
[2025-01-29 12:36] LABS: Ferritin 243 ng/mL (8-252)
[2025-01-29 12:47] LABS: Vitamin D 25 Total 14 ng/mL (30-100)
== END 2025-01-29 08:26 | disposition home or self-care (01) ==
LOC: LBO 08:25
PROVIDERS: PCP Nurse Practitioner Family; Visit Provider Nurse Practitioner Family
DX: E55.9 Vitamin D deficiency, unspecified (principal); E83.119 Hemochromatosis, unspecified
CPT/HCPCS: 82306; 82728; 85018

== ENCOUNTER 2025-01-30 00:44 | Outpatient (RCR) | payer OTHER, SELFPAY ==
[2025-01-23] MEDS: Normal Saline Flush 10 ML SYR IVP (12:29)
== END 2025-01-31 23:59 | disposition home or self-care (01) ==
LOC: INF 00:44
PROVIDERS: PCP Nurse Practitioner Family; Visit Provider Nurse Practitioner Family
DX: E83.119 Hemochromatosis, unspecified (principal)
CPT/HCPCS: 99195

== ENCOUNTER 2025-02-05 03:33 | Outpatient (CLI) | payer OTHER, SELFPAY ==
[2025-02-05 12:47] LABS: HGB 13.6 g/dL (11.2-15.7)
[2025-02-05 13:14] LABS: Ferritin 259 ng/mL (8-252)
== END 2025-02-05 03:34 | disposition home or self-care (01) ==
PROVIDERS: PCP Nurse Practitioner Family; Visit Provider Nurse Practitioner Family
DX: E83.118 Other hemochromatosis (principal)
CPT/HCPCS: 36415; 82728; 85018

== ENCOUNTER 2025-02-12 08:42 | Outpatient (CLI) | payer OTHER, SELFPAY ==
[2025-02-12 09:20] LABS: HCT 40.1 % (36.0-46.0); HGB 12.8 g/dL (11.2-15.7)
[2025-02-12 15:19] LABS: Ferritin 198 ng/mL (8-252)
== END 2025-02-12 08:43 | disposition home or self-care (01) ==
LOC: LBO 08:42
PROVIDERS: PCP Nurse Practitioner Family; Visit Provider Nurse Practitioner Family
DX: E83.118 Other hemochromatosis (principal)
CPT/HCPCS: 36415; 82728; 85014; 85018

== ENCOUNTER 2025-02-13 01:33 | Outpatient (RCR) | payer OTHER, SELFPAY | END 2025-03-02 23:59 | disposition home or self-care (01) | LOC: INF 01:33 | PROVIDERS: PCP Nurse Practitioner Family; Visit Provider Nurse Practitioner Family | DX: E83.119 Hemochromatosis, unspecified (principal) | CPT/HCPCS: 99195 ==

== ENCOUNTER 2025-03-05 02:58 | Outpatient (CLI) | payer OTHER, SELFPAY ==
[2025-03-05 13:58] LABS: HGB 13.8 g/dL (11.2-15.7)
[2025-03-05 14:25] LABS: Ferritin 120 ng/mL (8-252)
== END 2025-03-05 02:59 | disposition home or self-care (01) ==
LOC: LBO 02:58
PROVIDERS: PCP Nurse Practitioner Family; Visit Provider Nurse Practitioner Family
DX: E83.119 Hemochromatosis, unspecified (principal)
CPT/HCPCS: 36415; 82728; 85018

== ENCOUNTER 2025-03-13 00:54 | Outpatient (RCR) | payer OTHER, SELFPAY | END 2025-04-02 23:59 | disposition home or self-care (01) | LOC: INF 00:54 | PROVIDERS: PCP Nurse Practitioner Family; Visit Provider Nurse Practitioner Family | DX: E83.119 Hemochromatosis, unspecified (principal) | CPT/HCPCS: 99195 ==

== ENCOUNTER 2025-05-21 04:26 | Outpatient (CLI) | payer OTHER, SELFPAY ==
[2025-05-21 07:52] LABS: HGB 16.3 g/dL (11.2-15.7)
[2025-05-21 08:42] LABS: Ferritin 129 ng/mL (8-252)
== END 2025-05-21 04:27 | disposition home or self-care (01) ==
LOC: LBO 04:26
PROVIDERS: PCP Nurse Practitioner Family; Visit Provider Nurse Practitioner Family
DX: E83.118 Other hemochromatosis (principal)
CPT/HCPCS: 36415; 82728; 85018

== ENCOUNTER 2025-07-06 03:45 | Outpatient (CLI) | payer OTHER, SELFPAY ==
[2025-07-06 12:04] LABS: HCT 47.9 % (36.0-46.0); HGB 16.2 g/dL (11.2-15.7); MCH 33.7 pg (27.0-33.0); MCHC 33.8 % (32.0-36.0); MCV 100 fL (80-95); MPV 10.6 fL (8.0-11.0); Platelet Count 228 10^3/uL (130-400); RBC 4.81 10^6/uL (3.93-5.22); RDW 14.2 % (11.7-14.6); RDW-SD 52.2 fL; WBC 5.94 10^3/uL (4.4-10.8)
[2025-07-06 12:23] LABS: Hemoglobin A1C 5.1 % (<5.7)
[2025-07-06 12:51] LABS: ALT 127 U/L (14-59); AST 85 U/L (15-37); Albumin 4.0 g/dL (3.4-5.0); Alkaline Phosphatase 79 U/L (46-116); Anion Gap 11.7 mmol/L (3-11); BUN 6 mg/dL (7-18); Bilirubin, Total 0.3 mg/dL (0.2-1.0); CO2 28.3 mmol/L (21.0-32.0); Calcium 9.2 mg/dL (8.5-10.1); Chloride 104 mmol/L (98-107); Ferritin 455 ng/mL (8-252); Glucose 137 mg/dL (74-106); Potassium 3.2 mmol/L (3.5-5.1); Sodium 144 mmol/L (136-145); Total Protein 7.5 g/dL (6.4-8.2)
[2025-07-08 13:56] LABS: CA 19-9 7 U/mL (<35)
[2025-07-10 10:26] LABS: 1,25-Dihydroxyvitamin D 62 pg/mL (18-78)
== END 2025-07-06 03:46 | disposition home or self-care (01) ==
LOC: LBO 03:46
PROVIDERS: PCP Nurse Practitioner Family; Visit Provider Nurse Practitioner Family
DX: E83.110 Hereditary hemochromatosis; K86.9 Disease of pancreas, unspecified
CPT/HCPCS: 36415; 80053; 85027; 82652; 82728; 83036; 86301

== ENCOUNTER 2025-07-09 00:27 | Outpatient (RCR) | payer OTHER, SELFPAY | END 2025-08-02 23:59 | disposition home or self-care (01) | LOC: INF 00:27 | PROVIDERS: PCP Nurse Practitioner Family; Visit Provider Family Medicine | DX: E83.119 Hemochromatosis, unspecified (principal) | CPT/HCPCS: 99195 ==

== ENCOUNTER 2025-07-15 10:46 | Outpatient (CLI) | payer OTHER, SELFPAY ==
[2025-07-15 16:47] LABS: Ferritin 84 ng/mL (7-271)
== END 2025-07-15 10:47 | disposition home or self-care (01) ==
LOC: LBO 10:47
PROVIDERS: PCP Nurse Practitioner Family; Visit Provider Nurse Practitioner Family
DX: E83.110 Hereditary hemochromatosis (principal)
CPT/HCPCS: 36415; 82728